=== PATIENT | female | born 1935 | race Caucasian/White ===

== ENCOUNTER → 2016-09-10 | Outpatient (CLI) | payer OTHER ==
--- NOTE | 2016-09-10 15:41 | MAMMOGRAPHY REPORT ---
BILATERAL DIGITAL SCREENING MAMMOGRAM WITH CAD: 09/10/2016 CLINICAL HISTORY: Routine screening. Patient has no complaints. TECHNIQUE: Current study was also evaluated with a Computer Aided Detection (CAD) system. Bilatera l CC and MLO views were obtained. COMPARISON: Comparison is made to exams dated: 08/14/2015 mammogram, 08/12/2014 mammogram, 08/09/2013 enrique mogram, 08/07/2012 mammogram, 07/31/2012 mammogram, and 07/29/2011 mammogram - [facility]. BREAST COMPOSITION: There are scattered areas of fibroglandular density in both breasts. FINDINGS: No suspicious masses, calcifications, or areas of architectural distortion are noted in e ither breast. There has been no significant interval change compared to prior exams. Grouped amorp hous calcifications in the right 12:00 breast are stable dating back to at least the 2007 exam, and are considered benign given long-term stability. Nodular asymmetry in the left subareolar breast on the CC view is similar to prior exams including the 2012 and 2009 exams. IMPRESSION: ACR BI-RADS CATEGORY 2: BENIGN There is no mammographic evidence of malignancy. A 1 year screening mammogram is recommended. The p atient will receive written notification of the results. Approximately 10% of breast cancers are not detected with mammography. A negative mammographic repor t should not delay biopsy if a clinically suggestive mass is present. Nikia Maynard M.D. ah/:09/10/2016 11:06:20 Apprentice Lineman Third Step: Veronika CEBALLOS(Kasie)(Ronaldo)(BLAKE), [facility] letter sent: Normal 1/2 BI-RADS Code: ACR BI-RADS Category 2: Benign
== END | disposition home or self-care (01) ==
LOC: C.MAMM 10:45
PROVIDERS: ATTEND Internal Medicine
DX: Z12.31 Encounter for screening mammogram for malignant neoplasm of breast (principal)

== ENCOUNTER → 2016-09-16 | Outpatient (CLI) | payer OTHER ==
--- NOTE | 2016-09-16 16:23 | DIAGNOSTIC IMAGING REPORT ---
RIGHT WRIST MIN 3 VIEWS ROUTINE CLINICAL HISTORY: Wrist pain, acute, right Right pain COMPARISON: None. DISCUSSION: Generalized degenerative change. Osteopenia. Degenerative change most prominent at the first as well as second carpometacarpal joint. Degenerative change throughout the carpometacarpal junctions. There is no evidence for soft tissue swelling. IMPRESSION: Generalized degenerative change. Osteopenia. Electronically signed by: Tio Mckeon M.D. 09/16/2016 4:22 PM Dictated Date/Time: 09/16/2016 4:22 PM
== END | disposition home or self-care (01) ==
LOC: C.RADBC 15:53
PROVIDERS: ATTEND Physician Assistant
DX: M25.531 Pain in right wrist (principal); M85.88 Other specified disorders of bone density and structure, other site

== ENCOUNTER → 2016-09-17 | Outpatient (CLI) | payer OTHER ==
[2016-09-17 10:45] LABS: BASO % 0.6 %; BASO ABS # 0.04 K/uL (0-0.2); COMPLETE YES; EOS % 3.7 %; HEMATOCRIT 37.7 % (37-47); IG% 0.2 %; LYMPH % 30.9 %; LYMPH ABS # 2.02 K/uL (1.2-3.4); MEAN CELL VOLUME 92.2 fL (80-100); MEAN CORPUSCULAR HEMOGLOBIN 31.1 pg (25-34); MEAN CORPUSCULAR HGB CONC 33.7 g/dl (32-36); NEUT % 55.6 %; PLATELET COUNT 248 K/uL (130-400); RED BLOOD COUNT 4.09 M/uL (4.2-5.4); WHITE BLOOD COUNT 6.54 K/uL (4.8-10.8)
[2016-09-17 11:06] LABS: ALT/SGPT 34 U/L (12-78); BLOOD UREA NITROGEN 17 mg/dl (7-18); BUN/CREATININE RATIO 24.8 (10-20); CARBON DIOXIDE 27 mmol/L (21-32); CHLORIDE 109 mmol/L (98-107); CHOLESTEROL 162 mg/dl (0-200); CREATININE 0.67 mg/dl (0.60-1.20); GLUCOSE 99 mg/dl (70-99); POTASSIUM 4.1 mmol/L (3.5-5.1); SODIUM 142 mmol/L (136-145); TRIGLYCERIDES 106 mg/dl (0-150); URIC ACID 3.7 mg/dl (2.6-7.2); VERY LOW DENSITY LIPOPROT CALC 21 mg/dl
[2016-09-17 11:16] LABS: ALB/GLOB RATIO 1.1 (0.9-2); ALKALINE PHOSPHATASE 84 U/L (45-117); AST/SGOT 30 U/L (15-37); CHOLESTEROL/HDL RATIO 3.3; HDL CHOLESTEROL 49 mg/dl; LDL CHOLESTEROL CALCULATED 92 mg/dl
[2016-09-17 11:56] LABS: CALCIUM 9.3 mg/dl (8.5-10.1)
[2016-09-17 12:10] LABS: LYME DISEASE AB IGG NEG (NEG)
[2016-09-17 12:13] LABS: LYME DISEASE AB IGM NEG (NEG)
--- NOTE | 2016-09-22 14:28 | CODING QUERY MEDICAL NECESSITY ---
CQSUPPORTING DIAGNOSIS NEEDED A supporting diagnosis is required for the test/procedure performed on this patient in order for us to be reimbursed by the patient's insurance. Please provide a supporting diagnosis for the following test/procedure listed below next to the test name along with your signature. *If there is no additional diagnosis for this patient that would support the following test/procedure please document that below next to the test/procedure. Test(s)/Procedure(s) that require a supporting diagnosis: DOS 09/17/16 VITAMIN D VITAMIN B12 Provider Signature: Date: Thank you [facility] Once completed, please kindly fax back to [phone] For questions please call [phone]
== END | disposition home or self-care (01) ==
LOC: C.LABBC 08:19
PROVIDERS: ATTEND Physician Assistant
DX: K21.9 Gastro-esophageal reflux disease without esophagitis (principal); M25.531 Pain in right wrist; E55.9 Vitamin D deficiency, unspecified; E53.8 Deficiency of other specified B group vitamins

== ENCOUNTER → 2016-11-02 | Outpatient (CLI) | payer OTHER | END | disposition home or self-care (01) | LOC: C.MAMM 15:09 | PROVIDERS: ATTEND Internal Medicine | DX: M85.851 Other specified disorders of bone density and structure, right thigh (principal); M85.852 Other specified disorders of bone density and structure, left thigh; M85.88 Other specified disorders of bone density and structure, other site ==

== ENCOUNTER → 2017-09-15 | Outpatient (CLI) | payer OTHER ==
--- NOTE | 2017-09-16 07:48 | MAMMOGRAPHY REPORT ---
BILATERAL DIGITAL SCREENING MAMMOGRAM TOMOSYNTHESIS WITH CAD: 09/15/2017 CLINICAL HISTORY: Routine screening. Patient has no complaints. TECHNIQUE: Breast tomosynthesis in addition to standard 2D mammography was performed. Current study was also evaluated with a Computer Aided Detection (CAD) system. COMPARISON: Comparison is made to exams dated: 09/10/2016 mammogram, 08/14/2015 mammogram, 08/12/2014 mamm ogram, 08/09/2013 mammogram, 08/07/2012 mammogram, and 07/31/2012 mammogram - [facility] . BREAST COMPOSITION: There are scattered areas of fibroglandular density in both breasts. FINDINGS: No suspicious masses, calcifications, or areas of architectural distortion are noted in ei ther breast. There has been no significant interval change compared to prior exams. Amorphous calcif ications in the right 12:00 breast are stable compared to multiple prior exams dating back to at leas t 2008, and considered benign given long-term stability. Architectural distortion is noted within th e right subareolar breast, best seen on the CC tomosynthesis images, consistent with postsurgical bruce nges given that a prior surgical excision was performed in the subareolar right breast in 1998 which yielded benign pathology. IMPRESSION: ACR BI-RADS CATEGORY 2: BENIGN There is no mammographic evidence of malignancy. A 1 year screening mammogram is recommended. The pa tient will receive written notification of the results. Approximately 10% of breast cancers are not detected with mammography. A negative mammographic report should not delay biopsy if a clinically suggestive mass is present. Nikia Maynard M.D. ah/:09/15/2017 16:55:55 Oil Inspector: Veronika CEBALLOS(Kasie)(Ronaldo)(BD), [facility] letter sent: Normal 1/2 BI-RADS Code: ACR BI-RADS Category 2: Benign
== END | disposition home or self-care (01) ==
LOC: C.MAMM 10:02
PROVIDERS: ATTEND Internal Medicine
DX: Z12.31 Encounter for screening mammogram for malignant neoplasm of breast (principal)

== ENCOUNTER 2021-06-18 13:50 | Inpatient (IN) ==
[2021-06-18 14:54] LABS: Basophils # (auto) 0.03 K/uL (0-0.2); Basophils % (auto) 0.4 %; Eosinophils # (auto) 0.14 K/uL (0-0.5); Hematocrit (blood only) 38.2 % (37-47); Hemoglobin 12.6 g/dL (12.0-16.0); Immature Granulocytes # (auto) 0.01 K/uL (0.00-0.02); Immature Granulocytes % (auto) 0.1 %; Lymphocytes # (auto) 2.03 K/uL (1.2-3.4); Lymphocytes % (auto) 29.3 %; Mean Corpuscular Volume 94.1 fL (80-100); Mean Platelet Volume 9.4 fL (7.4-10.4); Monocytes # (auto) 0.59 K/uL (0.11-0.59); Monocytes % (auto) 8.5 %; Neutrophils # (auto) 4.14 K/uL (1.4-6.5); Neutrophils % (auto) 59.7 %; Platelet Count 265 K/uL (130-400); RDW Coefficient of Variation 13.8 % (11.5-14.5); RDW Standard Deviation 47.3 fL (36.4-46.3); Red Blood Count 4.06 M/uL (4.2-5.4); White Blood Count 6.94 K/uL (4.8-10.8)
[2021-06-18 15:07] LABS: Partial Thromboplastin Time 25.7 Seconds (21.0-31.0); Prothrombin Time 10.4 Seconds (9.0-12.0)
--- NOTE | 2021-06-18 15:16 | XRay Report ---
XR chest 1V portable HISTORY: Atypical Chest Pain COMPARISON: None. FINDINGS: No pneumothorax. Trace left pleural effusion. The heart is mildly enlarged. No evidence for pulmonary edema. No focal lung consolidations to suggest pneumonia. No rib fractures. Calcifications within the aortic knob. IMPRESSION: 1. Cardiomegaly and a trace left pleural effusion. 2. No evidence for pulmonary edema. ACT 112: Negative or not required by law. Electronically signed by: Collin Carvajal M.D. 06/18/2021 3:14 PM
[2021-06-18 15:19] LABS: Albumin Globulin Ratio 1.7 (0.9-2); Albumin Level 4.3 gm/dl (3.4-5.0); BUN Creatinine Ratio 18.3 (10-20); Bilirubin,Total 0.6 mg/dl (0.2-1.0); Calcium 9.7 mg/dl (8.5-10.1); Creatinine Clr Calc Pharmacy 42.8 ml/min; Est GFR (African American) 76.7 ml/min; Est GFR (Non-African American) 66.2 ml/min; Globulin 2.5 gm/dl (2.5-4.0); Potassium 4.2 mmol/L (3.5-5.1); Total Protein 6.8 gm/dl (6.0-8.3)
--- NOTE | 2021-06-18 15:26 | Emergency Department Note ---
History of Present Illness General Chief complaint: Hypertension Stated complaint: HYPERTENSION, SOB, ANKLES AND FEET SWOLLEN Time Seen by Provider: 06/18/21 14:59 History of Present Illness Maximum Pain Intensity: 5 85-year-old female presents to the ED with a chief complaint of lower extremity swelling for the past week or 2. She also has noticed some exertional dyspnea and easy exhaustion with activity as well as some mild tremors in her hands. She states that shortness of breath exertion has been present for a few days. The patient states that she noticed that her blood pressure has been also running high today. She reports a history of hypertension and high cholesterol as well as hypothyroidism. She states that she took her medication that she normally takes today and has been taking it regularly. She has not missed any doses. Denies any chest pains. Denies any trauma. No abdominal pains, nausea or vomiting. Home Medications Medication Instructions Recorded Confirmed Type calcium carbonate 600 mg-vitamin 1 tab PO DAILY tab 10/13/18 06/18/21 History D3 5 mcg (200 unit) tablet cyanocobalamin (vitamin B-12) 2,500 mcg PO DAILY tab 10/13/18 06/18/21 History 2,500 mcg tablet omega-3 fatty acids 1,000 mg 1,000 mg PO DAILY 10/13/18 06/18/21 History capsule (Fish Oil Concentrate) cholecalciferol (vitamin D3) 50 2,000 units PO DAILY 05/22/19 06/18/21 History mcg (2,000 unit) tablet glucosamine sulfate 500 mg tablet 500 mg PO DAILY tab 05/22/19 06/18/21 History (Glucosamine) ibuprofen 200 mg tablet 200 mg PO Q6H tab 04/08/21 06/18/21 History levothyroxine 50 mcg tablet 50 mcg PO DAILY #90 tab 06/08/21 06/18/21 Rx omeprazole 20 mg capsule,delayed 20 mg PO DAILY #90 cap 06/08/21 06/18/21 Rx release pravastatin 40 mg tablet 40 mg PO DAILY #90 tab 06/08/21 06/18/21 Rx ramipril 2.5 mg capsule 2.5 mg PO DAILY #90 cap 06/08/21 06/18/21 Rx Allergies Allergy/AdvReac Type Severity Reaction Status Date / Time adhesive Allergy Unknown Unknown Verified 06/18/21 15:09 Past Med/Surg History Medical History (Updated 06/18/21 @ 15:37 by Arik Cassidy DO) Abnormal mammogram Arthritis Basal cell carcinoma of face Gastroesophageal reflux disease Hyperglycemia Hyperlipidemia Hypertension Hypothyroidism Osteoporosis, senile Rosacea Vitamin B12 deficiency Vitamin D deficiency Surgical History History of cataract surgery BILATERAL History of colonoscopy History of total abdominal hysterectomy and bilateral salpingo-oophorectomy Family History Brother Coronary heart disease Dyslipidemia Hypertension Lung cancer Mother Diabetes Father Stroke syndrome Social History Smoking Status: Never smoker Second Hand Exposure: No; Hx Alcohol Use: Yes Alcohol type: wine Alcohol Intake Frequency: Monthly or Less Hx Substance Use: No Preferred Language: Malian Communication Ability: Effective Visual Impairment: Limited Hearing Ability: Use of Hearing Aid Nailhead Setter Required: No marital status: Current Living Situation: Alone current occupational status: retired Feels Safe at Home: Yes Childhood Exposure to Second-Hand Smoke: Yes caffeine: Yes Dental Care, Regularly: Yes Physical Activity Frequency: 3-4 Times per Week Physical Activity Frequency Comment: "easy moves", weights, steps, chair exercise Seatbelt Use: always Sunscreen Use: Yes Do you think of yourself as: straight/heterosexual Review of Systems A total of 10 systems reviewed and were otherwise negative Physical Exam Vital Signs Vital Signs - 24 hr 06/18/21 14:07 06/18/21 14:52 06/18/21 14:56 Temperature 36.5 C 37 C Temperature Source Temporal Artery Scan Oral Pulse Rate 40 L 51 L Pulse Rate [Right Finger] 54 L Pulse Rhythm Regular Pulse Rhythm [Right Finger] Regular Pulse Strength [Right Finger] Normal Respiratory Rate 18 20 20 Respiratory Effort / Characteristics Non-Labored Non-Labored Spontaneous Respiratory Depth Normal Normal Respiratory Pattern Regular Regular Blood Pressure 216/75 H Blood Pressure [Left Arm] 219/71 H Blood Pressure Mean 122 Blood Pressure Mean [Left Arm] 120 Blood Pressure Position [Left Arm] Lying Pulse Oximetry 97 96 96 Oxygen Delivery Method Room Air Room Air Room Air Sepsis Recent Fever Within 48 Hours No Sepsis New/Unexplained Change in Mental Status No Sepsis Action Taken by Nursing No Action Required CONSTITUTIONAL/VITAL SIGNS: Reviewed / noted above. GENERAL: Non-toxic in appearance. INTEGUMENTARY: Warm, dry, and Virgil. HEAD: Normocephalic. EYES: without scleral icterus or trauma. ENT/OROPHARYNX: clear and moist. LYMPHADENOPATHY/NECK: Is supple without lymphadenopathy or meningismus. RESPIRATORY: Clear to auscultation bilaterally. No increased work of breathing. CARDIOVASCULAR: Bradycardic rate and regular rhythm. GI/ABDOMEN: Soft and nontender. No organomegaly or pulsatile mass. EXTREMITIES: Warm and well perfused. Mild bilateral pedal edema. BACK: No CVA tenderness. NEUROLOGICAL: Intact without focal deficits. PSYCHIATRIC: normal affect. MUSCULOSKELETAL: Normally developed with good muscle tone. TRIAGE NURSING DOCUMENTATION REVIEWED. Medical Decision Making Differential Diagnosis The differential that was considered includes acute myocardial infarction, acute coronary syndrome, myocarditis, pericarditis, pericardial effusions /tamponade, esophageal perforation, thoracic aortic dissection, pulmonary embolism, pneumonia, Medical Records Attestation: I reviewed the patient's medical records. Home Medications Current Medication List: was personally reviewed by me Laboratory Data Attestation: I reviewed the patient's lab results. Result diagrams: 06/18/21 14:30 06/18/21 14:30 Lab Results 06/18/21 06/18/21 06/18/21 Range/Units 14:30 14:30 14:30 WBC 6.94 (4.8-10.8) K/uL RBC 4.06 L (4.2-5.4) M/uL Hgb 12.6 (12.0-16.0) g/dL Hct 38.2 (37-47) % MCV 94.1 (80-100) fL MCH 31.0 (25-34) pg MCHC 33.0 (32-36) g/dL RDW Std Deviation 47.3 H (36.4-46.3) fL RDW Coeff of Jody 13.8 (11.5-14.5) % Plt Count 265 (130-400) K/uL MPV 9.4 (7.4-10.4) fL Immature Gran % (Auto) 0.1 % Neut % (Auto) 59.7 % Lymph % (Auto) 29.3 % [place] % (Auto) 8.5 % Eos % (Auto) 2.0 % Baso % (Auto) 0.4 % Neut # (Auto) 4.14 (1.4-6.5) K/uL Lymph # (Auto) 2.03 (1.2-3.4) K/uL [place] # (Auto) 0.59 (0.11-0.59) K/uL Eos # (Auto) 0.14 (0-0.5) K/uL Baso # (Auto) 0.03 (0-0.2) K/uL Immature Gran # (Auto) 0.01 (0.00-0.02) K/uL PT 10.4 (9.0-12.0) Seconds INR 1.0 (0.9-1.1) APTT 25.7 (21.0-31.0) Seconds PTT Ratio 1.0 Sodium 143 (136-145) mmol/L Potassium 4.2 (3.5-5.1) mmol/L Chloride 110 H (98-107) mmol/L Carbon Dioxide 27 (21-32) mmol/L Anion Gap 6 (3-11) BUN 15 (6-23) mg/dl Creatinine 0.82 (0.6-1.2) mg/dl Est Cr Clr Drug Dosing 42.8 ml/min Est GFR ( Amer) 76.7 ml/min Est GFR (Non-Af Amer) 66.2 ml/min BUN/Creatinine Ratio 18.3 (10-20) Glucose 96 (70-99(Fasting)) mg/dl Calcium 9.7 (8.5-10.1) mg/dl Total Bilirubin 0.6 (0.2-1.0) mg/dl AST 36 (13-39) U/L ALT 38 (7-52) U/L Alkaline Phosphatase 78 (34-104) U/L Troponin I 0.05 H* (0-0.04) ng/ml Total Protein 6.8 (6.0-8.3) gm/dl Albumin 4.3 (3.4-5.0) gm/dl Globulin 2.5 (2.5-4.0) gm/dl Albumin/Globulin Ratio 1.7 (0.9-2) Imaging Data Radiologist's Impression: Chest X-Ray 06/18/21 14:44 XR chest 1V portable HISTORY: Atypical Chest Pain COMPARISON: None. FINDINGS: No pneumothorax. Trace left pleural effusion. The heart is mildly enlarged. No evidence for pulmonary edema. No focal lung consolidations to suggest pneumonia. No rib fractures. Calcifications within the aortic knob. IMPRESSION: 1. Cardiomegaly and a trace left pleural effusion. 2. No evidence for pulmonary edema. ACT 112: Negative or not required by law. Electronically signed by: Collin Carvajal M.D. 06/18/2021 3:14 PM ECG Data Attestation: I personally reviewed and interpreted this ECG as follows: Additional Comments: Twelve-lead EKG: Per my interpretation shows a sinus rhythm with a second-degree Mobitz type II heart block with a rate of 43. Every other atrial beat resulted in a ventricular beat on the twelve-lead EKG. T wave inversions noted in the anterior leads. No ST elevation. No PVCs. Cardiac monitoring: An order was placed for continuous cardiac monitoring. The monitor shows a sinus rhythm with a second-degree heart block transmitting every third beat resulting in a ventricular rate of around 30. MDM Narrative Patient presents with some exertional dyspnea and swelling in her legs that has been recent in onset within the past week or 2. Her exertional dyspnea and exertional fatigue has been present for a few days. Her vital signs reveal hypertension. She has not missed any of her ramipril. The patient's heart rate is slow. This is a result of a sinus rhythm with a second-degree type II heart block. Twelve-lead EKG shows a sinus rhythm with a second-degree heart block type II. There are T wave inversions anteriorly. CBC was normal. A chest x- ray reveals and some cephalization of the vasculature but no acute pulmonary claribel ma or pneumonia. The patient CBC and chemistry panel was unremarkable. The troponin is elevated. I did speak with Dr. Meza about the patient. He will see the patient in consultation. I will consult the hospitalist for further inpatient evaluation and care. At this time the patient appears to be clinically stable. Pacer pads have been applied. Impression & Plan Mobitz type 2 second degree heart block, Elevated troponin Discharge Plan Visit Data Chief Complaint: Hypertension Stated Complaint: HYPERTENSION, SOB, ANKLES AND FEET SWOLLEN ED Provider: Arik Cassidy Discharge Problem: Mobitz type 2 second degree heart block, Elevated troponin Patient Disposition: Being Evaluated by Hospitalist Forms Stand Alone Forms: My [facility] [employer] Prescriptions Prescriptions: No Action ramipril 2.5 mg capsule 2.5 mg PO DAILY Qty: 90 RF: 3 levothyroxine 50 mcg tablet 50 mcg PO DAILY Qty: 90 RF: 3 omeprazole 20 mg capsule,delayed release(DR/EC) 20 mg PO DAILY Qty: 90 RF: 3 pravastatin 40 mg tablet 40 mg PO DAILY Qty: 90 RF: 3 cyanocobalamin (vitamin B-12) 2,500 mcg tablet 2,500 mcg PO DAILY RF: 0 calcium carbonate-vitamin D3 600 mg(1,500mg) -200 unit tablet 1 tab PO DAILY RF: 0 omega-3 fatty acids [Fish Oil Concentrate] 1,000 mg capsule 1,000 mg PO DAILY RF: 0 glucosamine sulfate [Glucosamine] 500 mg tablet 500 mg PO DAILY RF: 0 ibuprofen 200 mg tablet 200 mg PO Q6H RF: 0 cholecalciferol (vitamin D3) 2,000 unit tablet 2,000 units PO DAILY RF: 0 Referrals Referrals: Ryan Limon MD [Primary Care Provider] -
[2021-06-18 15:31] LABS: Troponin I 0.05 ng/ml (0-0.04)
[2021-06-18 16:06] LABS: Thyroid Stimulating Hormone 6.677 uIu/ml (0.300-4.500)
--- NOTE | 2021-06-18 16:16 | History & Physical Report ---
Date of Service June 18, 2021 Assessment & Plan (1) Mobitz type 2 second degree heart block: Plan: Acute onset- Type II Mobitz vs Type III - ECG without dynamic ST changes - Troponin I 0.05- trend - Evidence of peripheral volume overload - TSH 6.6 with normal T4 on 50mcg of Synthroid daily - Electrolytes- Mag 1.7- replete closer to 2 decrease QT with bradycardia - Lympe pending - BNP 595 - UA pending - No gap, normal HCO3- making BRASH less likely - Normal renal function - Cardiology consulted by EMD- continue consult- appreciate assistance - NPO after midnight Overall tolerate her elevated BP as this is likely compensatory- if hemodynamics become compromised or evidence of hypoperfusion - pressor support would chose epinephrine and initiate TCP pacing with progression to temp/permanent pacer therapy. (2) Elevated troponin: Plan: As symptoms have been ongoing for the past week would expect this to be more elevated if ischemic - Patient does carry family history of heart disease with brothers having MIs - As above- trend (3) Hypertension: Plan: As above- diurese overnight as perfusion allows (4) Edema: Plan: dietary indiscretion liley leading to fluid retention - likeley compounded by her bradycardia at this point (5) Hypothyroidism: Plan: on 50MCG synthroid with TSH normally 2 range - Free T4 is normal - Likely not causing her bradycardia (6) Vitamin D deficiency: Plan: Hold Vitamin D for now (7) Vitamin B12 deficiency: Plan: Hold B12 for now (8) Sensory polyneuropathy: Plan: Follows with neurology- MRI as per HPI and chart review (9) Hyperlipidemia: Plan: Continue Pravastatin History of Present Illness Chief Complaint: dyspnea on exertion, fatigue Primary Care Provider: Ryan Limon MD 85 YOF with past medical history of: HTN, Hypothyroidism, polyneuropathy, lumbar spondylosis, OA. Patient comes in today for complaints of dyspnea and fatigue and leg swelling. This has been ongoing for the past 2 weeks. Started with swelling of her ankles bilaterally and slowly progressing up to her knees, she also has been getting increase in fatigue and dyspnea when performing her physical therapy to the point she needed to sit down and rest. She denies any chest pain or dizziness, she did however have a feeling of off balance yesterday while getting her mail. In the EMD the patient was noted to be hypertensive and bradycardic. She was noted to be in 2nd degree type II AV block. She had routine labs done to include troponin, ECG, and CXR. The patient denies any new medications, but does endorse dietary indiscretion over the last month of allot of ham and dairy. She does not have any pets, but her family that visits every other week has 2 dogs that are inside pets. She denies any ticks or insect bites. She does follow with neurology for her neuropathy and had MRI of the brain, lumbar, thoracic completed May and Jun 29 without acute infarct/masses, or chord involvement. Noted for DJD and anterolisthesis of L4- L5. Patient is bradycardic to the 40s and 50s with evidence of peripheral volume overload and pleural effusions on her CXR. She is hypertensive at this time, which is likely compensatory from her HR. She has no evidence of organ dysfunction or hypoxia at this time. Electrolytes are normal without evidence of acidosis making BRASH syndrome less likely. Lyme is pending on her. TSH is 6.67 with normal T4 of 1.30, BNP is elevated, and she is without neurological symptoms. Troponin I 0.[address] segment changes, no evidence of infectious etiology. Will admit patient to PCU with diuresing to decrease her volume status, will avoid aggressive BP lowering at this time as this is likely compensatory for her low HR. Patient COVID test is: NEGATIVE at this time Allergies Allergy/AdvReac Type Severity Reaction Status Date / Time adhesive Allergy Unknown Unknown Verified 06/18/21 15:09 Home Medications Medication Instructions Recorded Confirmed Type calcium carbonate 600 mg-vitamin 1 tab PO DAILY tab 10/13/18 06/18/21 History D3 5 mcg (200 unit) tablet cyanocobalamin (vitamin B-12) 2,500 mcg PO DAILY tab 10/13/18 06/18/21 History 2,500 mcg tablet omega-3 fatty acids 1,000 mg 1,000 mg PO DAILY 10/13/18 06/18/21 History capsule (Fish Oil Concentrate) cholecalciferol (vitamin D3) 50 2,000 units PO DAILY 05/22/19 06/18/21 History mcg (2,000 unit) tablet glucosamine sulfate 500 mg tablet 500 mg PO DAILY tab 05/22/19 06/18/21 History (Glucosamine) ibuprofen 200 mg tablet 200 mg PO Q6H tab 04/08/21 06/18/21 History levothyroxine 50 mcg tablet 50 mcg PO DAILY #90 tab 06/08/21 06/18/21 Rx omeprazole 20 mg capsule,delayed 20 mg PO DAILY #90 cap 06/08/21 06/18/21 Rx release pravastatin 40 mg tablet 40 mg PO DAILY #90 tab 06/08/21 06/18/21 Rx ramipril 2.5 mg capsule 2.5 mg PO DAILY #90 cap 06/08/21 06/18/21 Rx Past Med/Surg History Medical History (Updated 06/18/21 @ 17:31 by Benji Carpenter MD) Abnormal mammogram Arthritis Basal cell carcinoma of face Gastroesophageal reflux disease Hyperglycemia Hyperlipidemia Hypertension Hypothyroidism Osteoporosis, senile Rosacea Vitamin B12 deficiency Vitamin D deficiency Surgical History History of cataract surgery BILATERAL History of colonoscopy History of total abdominal hysterectomy and bilateral salpingo-oophorectomy Family History Brother Coronary heart disease Dyslipidemia Hypertension Lung cancer Mother Diabetes Father Stroke syndrome Social History Smoking Status: Never smoker Second Hand Exposure: No; Do You Dip or Chew Tobacco: No; Tobacco Cessation Education Requested by Patient: No Hx Alcohol Use: Yes Alcohol type: wine Alcohol Intake Frequency: Monthly or Less Hx Substance Use: No Preferred Language: Setswana Communication Ability: Effective Visual Impairment: Limited Hearing Ability: Use of Hearing Aid Camp Tender Required: No Beliefs That Will Affect Care: None marital status: Current Living Situation: Alone current occupational status: retired Other Information That Helps Us Care for You: No Feels Safe at Home: Yes Safety Concerns: Feels Safe At This Time Childhood Exposure to Second-Hand Smoke: Yes caffeine: Yes Dental Care, Regularly: Yes Physical Activity Frequency: 3-4 Times per Week Physical Activity Frequency Comment: "easy moves", weights, steps, chair exercise Seatbelt Use: always Sunscreen Use: Yes Do you think of yourself as: straight/heterosexual Assistive Devices: Denture - Upper and Hearing Aid - Bilateral Assistive Devices Comment: permanent dentures and small removal upper dentures Review of Systems Review of Systems: REVIEW OF SYSTEMS: Constitutional: No fever, sweats or chills Eyes: No diplopia, no worsening or blurred vision ENT: normal hearing, no trouble swallowing Respiratory: (+) dyspnea on exertion, No cough, sputum, dyspnea at rest or on exertion Cardiovascular: (+) leg swelling bilateral, No chest pain, tightness or palpita tions Abdomen: No pain, nausea, vomiting, diarrhea or constipation Musculoskeletal: (+) lower back pain, neuropathy in fingers and foot Neurologic: No weakness, or balance problems Psychiatric: No anxiety or depression Skin: No rash or itch Physical Exam Physical Exam: PHYSICAL EXAM: General: awake, alert, no apparent distress Head: Normocephalic, atraumatic ENT: PERRLA, EOMI, no pharyngeal exudate, mucous membranes moist Neuro: AAO x 3, speech clear and appropriate, strength intact bilaterally 5/5, sensation intact and equal all extremities and dermatomes, no pronator drift Chest: equal rise and fall of the chest, no accessory muscle use, no heaves or thrills, scattered crackles- decreased in the bases Cardiac: Regular rate and rhythm, telemetry reviewed- 2nd degree type II, skin warm dry, cap refill <3 seconds, peripheral pulses +2, 3+ soft pitting edema from feet to just below the knee bilaterally GI: NABS x 4 quadrants, soft, nontender to palpation, no rebound, guarding or tenderness : Spontaneously voiding, no pain, no CVA tenderness, Extremities: Normal inspection, no peripheral edema or erythema, calfs nontender to palpation Psych: Normal mood and affect Skin: no rash or erythema Results & Data Results & Data ([facility]) Vital Signs (Past 12 Hours) Vital Signs Temp Pulse Pulse Resp BP BP Pulse Ox 06/18/21 16:00 112 H 20 212/76 H 96 06/18/21 14:56 51 L 20 96 06/18/21 14:52 37 C 54 L 20 219/71 H 96 06/18/21 14:07 36.5 C 40 L 18 216/75 H 97 Laboratory Results Abnormal lab results 06/18/21 06/18/21 06/18/21 Range/Units 14:30 14:30 15:35 RBC 4.06 L (4.2-5.4) M/uL RDW Std Deviation 47.3 H (36.4-46.3) fL Chloride 110 H (98-107) mmol/L Troponin I 0.05 H* (0-0.04) ng/ml B-Natriuretic Peptide (0-100) pg/ml TSH 6.677 H (0.300-4.500) uIu/ml 06/18/21 Range/Units 16:05 RBC (4.2-5.4) M/uL RDW Std Deviation (36.4-46.3) fL Chloride (98-107) mmol/L Troponin I (0-0.04) ng/ml B-Natriuretic Peptide 595 H (0-100) pg/ml TSH (0.300-4.500) uIu/ml Diagnostic Findings Chest X-Ray 06/18/21 14:44 XR chest 1V portable HISTORY: Atypical Chest Pain COMPARISON: None. FINDINGS: No pneumothorax. Trace left pleural effusion. The heart is mildly enlarged. No evidence for pulmonary edema. No focal lung consolidations to suggest pneumonia. No rib fractures. Calcifications within the aortic knob. IMPRESSION: 1. Cardiomegaly and a trace left pleural effusion. 2. No evidence for pulmonary edema. ACT 112: Negative or not required by law. Electronically signed by: Collin Carvajal M.D. 06/18/2021 3:14 PM Medications Administered Home Medications calcium carbonate 600 mg-vitamin D3 5 mcg (200 unit) tablet 1 tab PO DAILY tab 10/13/18 [History Confirmed 06/18/21] cyanocobalamin (vitamin B-12) 2,500 mcg tablet 2,500 mcg PO DAILY tab 10/13/18 [History Confirmed 06/18/21] omega-3 fatty acids 1,000 mg capsule (Fish Oil Concentrate) 1,000 mg PO DAILY 10/13/18 [History Confirmed 06/18/21] cholecalciferol (vitamin D3) 50 mcg (2,000 unit) tablet 2,000 units PO DAILY [History Confirmed 06/18/21] glucosamine sulfate 500 mg tablet (Glucosamine) 500 mg PO DAILY tab 05/22/19 [History Confirmed 06/18/21] ibuprofen 200 mg tablet 200 mg PO Q6H tab 04/08/21 [History Confirmed 06/18/21] levothyroxine 50 mcg tablet 50 mcg PO DAILY #90 tab 01/31/22 [Rx Confirmed 06/18/21] omeprazole 20 mg capsule,delayed release 20 mg PO DAILY #90 cap 06/08/21 [Rx Confirmed 06/18/21] pravastatin 40 mg tablet 40 mg PO DAILY #90 tab 06/08/21 [Rx Confirmed 06/18/21] ramipril 2.5 mg capsule 2.5 mg PO DAILY #90 cap 06/08/21 [Rx Confirmed 06/18/21] Active Medications Magnesium Sulfate/Dextrose (Magnesium Sulfate / D5w) 1 gm in 100 mls @ 50 mls/hr IV Q2H STA Stop: 06/18/21 18:22 ECG Additional Comments: Marked sinus bradycardia with Premature ventricular complexes or Fusion complexes Possible Left atrial enlargement Incomplete right bundle branch block ST & T wave abnormality, consider anterior ischemia Abnormal ECG When compared with ECG of 11-OCT-1996 09:39, Fusion complexes are now Present Premature ventricular complexes are now Present Vent. rate has decreased BY 34 BPM Incomplete right bundle branch block is now Present Code Status & VTE Plan Code Status CODE: FULL VTE: SCDs, Lovenox 40mg subq daily Supervising Physician Co-Signing Physician Notes Attending Attestation & Admission Note: Pt seen/examined, chart reviewed, care plan d/w AYAN Saez. I agree w/ the johnson components of his documentation. Pleasant 85yo female with h/o HTN, hyperlipidemia, and hypothyroidism presents with 1-2 weeks of simply feeling unwell. She reports fatigue, weakness, dyspnea, and worsening LE edema. Upon ER presentation today she was noted to be bradycardic and EKG revealed type 2 Mobitz, 2nd degree AV block. Cardiology was consulted, and permanent pacemaker placement is planned for tomorrow. PMH/PSH/allergies/meds/sochx/famhx - reviewed vitals - BPs elevated, afebrile, O2 sats wnl in RA gen - NAD, pleasant neck - JVD present heart - bradycardic, s1 s2, no murmur lungs - fine bibasilar rales, no wheeze, no increased work of breathing abd - soft NT BS+ ext - 2-3+ edema b/l legs labs reviewed EKG - 2nd degree AV block, mobitz type 2 vs 3rd degree AV block cxr reviewed A/P: High-degree AV Block Dyspnea - possibly 2nd to acute diastolic CHF in setting of the heart block HTN - uncontrolled fatigue - 2nd to AV Block agree with gentle diuresis BP control cards consult appreciated; NPO after MN tonight for pacer placement tomorrow by Dr Carpenter check echo for LV function Edmond Bennett MD PG Care Time/CCT Total # of Minutes Spent Total Time Spent with Patient: Total time spent is greater than 50% in coordination of care (as documented) at patient's floor/unit and/or counseling patient: Coding Level of Care Code 90902 Initial Inpt Care Lvl 3 Diagnoses Mobitz type 2 second degree heart block I44.1 Elevated troponin R77.8 Edema R60.9 Sensory polyneuropathy G60.8 Vitamin D deficiency E55.9 Vitamin B12 deficiency E53.8 Hypothyroidism E03.9 Hypothyroidism type: acquired Hypertension I10 Hypertension type: essential hypertension Hyperlipidemia E78.49; E78.4 Hyperlipidemia type: other hyperlipidemia (1) Hyperlipidemia Hyperlipidemia type: other hyperlipidemia Qualified Code(s): E78.49 - Other hyperlipidemia; E78.4 - Other hyperlipidemia (2) Hypothyroidism Hypothyroidism type: acquired Qualified Code(s): E03.9 - Hypothyroidism, unspecified (3) Hypertension Hypertension type: essential hypertension Qualified Code(s): I10 - Essential (primary) hypertension
[2021-06-18] MEDS ORDERED: MAGNESIUM SULFATE / D5W 1 GM/100 ML BAG IV STA (16:23)
[2021-06-18 16:41] LABS: T4 Free Thyroxine 1.3 ng/dl (0.61-1.60)
[2021-06-18] MEDS ORDERED: FUROSEMIDE INJ 20 MG/2 ML VIAL IV ONE (16:55)
[2021-06-18 17:00] LABS: Lyme Ab IgG w/WB Rflx Negative (Negative); Lyme Ab IgM w/WB Rflx Negative (Negative)
--- NOTE | 2021-06-18 17:33 | Cardiology Consultation ---
Date of Consultation June 18, 2021 Assessment & Plan (1) Complete heart block: 1. Complete heart block: She may have some element of AV conduction at times, this likely represents high-degree AV block. Does have a narrow complex escape rhythm. She undoubtedly is symptomatic the associated bradycardia. Very possible that she has had significant conduction disease for several days based on her description of symptoms. There does not appear to be a clear etiology. Her Lyme titers were negative. She is not a medication that should contribute to AV block. While we do not have an assessment of her overall LV function, she seemed to be doing well leading up to the past few weeks. she seems to have an element of pulmonary vascular congestion by report and did undergo diuretic administration. This is likely related to her complete heart block and associated bradycardia. No evidence of recent myocardial infarction based on her essentially normal troponin. She is maintaining a good blood pressure, even hypertensive. She has a narrow complex escape rhythm. I do not believe there is an indication for temporary transvenous pacing. However, I do believe she will require a permanent pacemaker. Did describe the procedure and attendant risks to her today. Tentatively plan on proceeding tomorrow. We will get an echocardiogram in the morning. we will trend biomarkers History of Present Illness Reason for Consultation: Bradycardia Requesting Physician: Sofía History of Present Illness the patient is an 85-year-old woman without a known history of cardiac disease who came to the emergency room today because exercise intolerance breathing difficulty and swollen ankles. The patient states she has not felt well for approximately a week and. She has had some more difficulty performing activities. She has noted higher blood pressures at home well. She did not specifically endorse dizziness or lightheadedness she has not had syncope. She states that today she had difficulty coming in from the parking due to dyspnea. Did not report orthopnea. Does have some home monitoring device at home but could not get her blood pressure machine work today. However, she states that several days ago she noticed a low pulse reading when taking her blood pressure. She presented to the emergency room with these complaints and was discovered to have bradycardia. EKG revealed high-degree AV block. Allergies Allergy/AdvReac Type Severity Reaction Status Date / Time adhesive Allergy Unknown Unknown Verified 06/18/21 15:09 Home Medications Medication Instructions Recorded Confirmed Type calcium carbonate 600 mg-vitamin 1 tab PO DAILY tab 10/13/18 06/18/21 History D3 5 mcg (200 unit) tablet cyanocobalamin (vitamin B-12) 2,500 mcg PO DAILY tab 10/13/18 06/18/21 History 2,500 mcg tablet omega-3 fatty acids 1,000 mg 1,000 mg PO DAILY 10/13/18 06/18/21 History capsule (Fish Oil Concentrate) cholecalciferol (vitamin D3) 50 2,000 units PO DAILY 05/22/19 06/18/21 History mcg (2,000 unit) tablet glucosamine sulfate 500 mg tablet 500 mg PO DAILY tab 05/22/19 06/18/21 History (Glucosamine) ibuprofen 200 mg tablet 200 mg PO Q6H tab 04/08/21 06/18/21 History levothyroxine 50 mcg tablet 50 mcg PO DAILY #90 tab 06/08/21 06/18/21 Rx omeprazole 20 mg capsule,delayed 20 mg PO DAILY #90 cap 06/08/21 06/18/21 Rx release pravastatin 40 mg tablet 40 mg PO DAILY #90 tab 06/08/21 06/18/21 Rx ramipril 2.5 mg capsule 2.5 mg PO DAILY #90 cap 06/08/21 06/18/21 Rx Patient History Medical History (Updated 06/18/21 @ 17:31 by Benji Carpenter MD) Abnormal mammogram Arthritis Basal cell carcinoma of face Gastroesophageal reflux disease Hyperglycemia Hyperlipidemia Hypertension Hypothyroidism Osteoporosis, senile Rosacea Vitamin B12 deficiency Vitamin D deficiency Surgical History History of cataract surgery BILATERAL History of colonoscopy History of total abdominal hysterectomy and bilateral salpingo-oophorectomy Family History Brother Coronary heart disease Dyslipidemia Hypertension Lung cancer Mother Diabetes Father Stroke syndrome Social History Smoking Status: Never smoker Second Hand Exposure: No; Hx Alcohol Use: Yes Alcohol type: wine Alcohol Intake Frequency: Monthly or Less Hx Substance Use: No Preferred Language: Scottish Communication Ability: Effective Visual Impairment: Limited Hearing Ability: Use of Hearing Aid Car Hiker Required: No marital status: Current Living Situation: Alone current occupational status: retired Feels Safe at Home: Yes Childhood Exposure to Second-Hand Smoke: Yes caffeine: Yes Dental Care, Regularly: Yes Physical Activity Frequency: 3-4 Times per Week Physical Activity Frequency Comment: "easy moves", weights, steps, chair exercise Seatbelt Use: always Sunscreen Use: Yes Do you think of yourself as: straight/heterosexual Review of Systems Review of Systems: Per HPI. She has not had recent fevers or chills. No gastrointestinal disturbance. Some slight headache this afternoon. Physical Exam Physical Exam: She is alert and oriented x3. Mood affect appear normal. She answered all questions appropriately. HEENT: Sclerae are anicteric. Pupils are equal and reactive to light and accommodation. Extraocular movements were intact. Neuro: Cranial nerves intact (Wearing a mask) Lungs: Lungs are clear to auscultation bilaterally. There are no rales wheezes or rhonchi. She has normal respiratory effort without use of accessory muscles. There is normal pulmonary excursion. Cardiac: The rhythm was regular. bradycardic. S1 and S2 were normal. There are no murmurs on examination. The PMI was not markedly displaced on palpation. Abdomen: The abdomen was soft and nontender. Extremities: Patient has bilateral radial pulses that are equal in intensity. There is no evidence cyanosis or clubbing. moderate lower extremity edema Skin: There are no rashes noted on examination today. Results & Data ([facility]) Vital Signs (Past 12 Hours) Vital Signs Temp Pulse Pulse Resp BP BP Pulse Ox 06/18/21 16:00 112 H 20 212/76 H 96 06/18/21 14:56 51 L 20 96 06/18/21 14:52 37 C 54 L 20 219/71 H 96 06/18/21 14:07 36.5 C 40 L 18 216/75 H 97 Laboratory Results Abnormal Lab Results 06/18/21 06/18/21 06/18/21 14:30 14:30 14:30 WBC 6.94 RBC 4.06 L Hgb 12.6 Hct 38.2 MCV 94.1 MCH 31.0 MCHC 33.0 RDW Std Deviation 47.3 H RDW Coeff of Jody 13.8 Plt Count 265 MPV 9.4 Immature Gran % (Auto) 0.1 Neut % (Auto) 59.7 Lymph % (Auto) 29.3 [place] % (Auto) 8.5 Eos % (Auto) 2.0 Baso % (Auto) 0.4 Neut # (Auto) 4.14 Lymph # (Auto) 2.03 [place] # (Auto) 0.59 Eos # (Auto) 0.14 Baso # (Auto) 0.03 Immature Gran # (Auto) 0.01 PT 10.4 INR 1.0 APTT 25.7 PTT Ratio 1.0 Sodium 143 Potassium 4.2 Chloride 110 H Carbon Dioxide 27 Anion Gap 6 BUN 15 Creatinine 0.82 Est Cr Clr Drug Dosing 42.8 Est GFR ( Amer) 76.7 Est GFR (Non-Af Amer) 66.2 BUN/Creatinine Ratio 18.3 Glucose 96 Calcium 9.7 Magnesium Total Bilirubin 0.6 AST 36 ALT 38 Alkaline Phosphatase 78 Troponin I 0.05 H* B-Natriuretic Peptide Total Protein 6.8 Albumin 4.3 Globulin 2.5 Albumin/Globulin Ratio 1.7 TSH Free T4 Lyme Disease IgG Ab Lyme Disease IgM Ab SARS-CoV-2, RNA, NAAT 06/18/21 06/18/21 06/18/21 14:30 15:35 15:43 WBC RBC Hgb Hct MCV MCH MCHC RDW Std Deviation RDW Coeff of Jody Plt Count MPV Immature Gran % (Auto) Neut % (Auto) Lymph % (Auto) [place] % (Auto) Eos % (Auto) Baso % (Auto) Neut # (Auto) Lymph # (Auto) [place] # (Auto) Eos # (Auto) Baso # (Auto) Immature Gran # (Auto) PT INR APTT PTT Ratio Sodium Potassium Chloride Carbon Dioxide Anion Gap BUN Creatinine Est Cr Clr Drug Dosing Est GFR ( Amer) Est GFR (Non-Af Amer) BUN/Creatinine Ratio Glucose Calcium Magnesium 1.7 Total Bilirubin AST ALT Alkaline Phosphatase Troponin I B-Natriuretic Peptide Total Protein Albumin Globulin Albumin/Globulin Ratio TSH 6.677 H Free T4 1.30 Lyme Disease IgG Ab Lyme Disease IgM Ab SARS-CoV-2, RNA, NAAT NEGATIVE 06/18/21 06/18/21 16:05 16:05 WBC RBC Hgb Hct MCV MCH MCHC RDW Std Deviation RDW Coeff of Jody Plt Count MPV Immature Gran % (Auto) Neut % (Auto) Lymph % (Auto) [place] % (Auto) Eos % (Auto) Baso % (Auto) Neut # (Auto) Lymph # (Auto) [place] # (Auto) Eos # (Auto) Baso # (Auto) Immature Gran # (Auto) PT INR APTT PTT Ratio Sodium Potassium Chloride Carbon Dioxide Anion Gap BUN Creatinine Est Cr Clr Drug Dosing Est GFR ( Amer) Est GFR (Non-Af Amer) BUN/Creatinine Ratio Glucose Calcium Magnesium Total Bilirubin AST ALT Alkaline Phosphatase Troponin I B-Natriuretic Peptide 595 H Total Protein Albumin Globulin Albumin/Globulin Ratio TSH Free T4 Lyme Disease IgG Ab Negative Lyme Disease IgM Ab Negative SARS-CoV-2, RNA, NAAT Diagnostic Findings chest x-ray taken at the time admission not reveal any acute cardiopulmonary process. ECG Additional Comments: EKG obtained the time admission revealed sinus rhythm with high-degree AV block. Narrow complex QRS Coding Level of Care Code 83060 Initial Inpt Care Lvl 3 Diagnoses Complete heart block I44.2
[2021-06-18] MEDS ORDERED: POLYETHYLENE (MIRALAX) 17 GM PACK PO PRN (18:15)
[2021-06-18] MEDS ORDERED: ACETAMINOPHEN 325 MG TAB PO PRN (18:15)
[2021-06-18] MEDS ORDERED: ENOXAPARIN INJ 40 MG/0.4 ML SYR SQ SCH (19:00)
[2021-06-19] MEDS: LEVOTHYROXINE SODIUM 50 MCG TABLET PO SCH (05:45)
[2021-06-19 06:13] LABS: Basophils # (auto) 0.02 K/uL (0-0.2); Basophils % (auto) 0.3 %; Eosinophils # (auto) 0.12 K/uL (0-0.5); Eosinophils % (auto) 1.6 %; Hematocrit (blood only) 33.8 % (37-47); Hemoglobin 11.1 g/dL (12.0-16.0); Immature Granulocytes # (auto) 0.01 K/uL (0.00-0.02); Immature Granulocytes % (auto) 0.1 %; Lymphocytes # (auto) 1.87 K/uL (1.2-3.4); Lymphocytes % (auto) 24.9 %; Mean Corpuscular Hemoglobin 30.9 pg (25-34); Mean Corpuscular Hgb Conc 32.8 g/dL (32-36); Mean Corpuscular Volume 94.2 fL (80-100); Mean Platelet Volume 9.5 fL (7.4-10.4); Neutrophils % (auto) 61.1 %; Platelet Count 248 K/uL (130-400); RDW Coefficient of Variation 13.9 % (11.5-14.5); Red Blood Count 3.59 M/uL (4.2-5.4); White Blood Count 7.52 K/uL (4.8-10.8)
[2021-06-19 06:30] LABS: Calcium 8.7 mg/dl (8.5-10.1); Chol HDL Ratio 2.7 (0-5); Creatinine Clr Calc Pharmacy 47.4 ml/min; Est GFR (African American) 86.8 ml/min; Est GFR (Non-African American) 74.9 ml/min; Potassium 3.6 mmol/L (3.5-5.1)
[2021-06-19 06:33] LABS: Troponin I 0.14 ng/ml (0-0.04)
[2021-06-19] MEDS: ENALAPRIL MALEATE 10 MG TAB PO SCH (08:34)
[2021-06-19] MEDS: PANTOprazole 40 MG TAB PO SCH (08:34)
[2021-06-19] MEDS: PRAVASTATIN SOD 40 MG TAB PO SCH (08:34)
--- NOTE | 2021-06-19 11:54 | XCELERA ---
[id number]
[2021-06-19] MEDS ORDERED: LIDOCAINE 1% LOCAL 20 ML VIAL ONE (12:03)
[2021-06-19] MEDS ORDERED: BUPIVACAINE 0.25% 30 ML VIAL ONE (12:03)
[2021-06-19] MEDS ORDERED: VANCOMYCIN HCL 1000MG/20ML VIAL ONE (12:03)
[2021-06-19] MEDS ORDERED: WATER, STERILE FOR INJ 10 ML VIAL ONE (12:04)
[2021-06-19] MEDS ORDERED: ceFAZolin 330 MG/ML 1 GM VIAL ONE (12:11)
[2021-06-19] MEDS ORDERED: MIDAZOLAM HCL 1 MG/ML 2ML VIAL ONE (12:11)
[2021-06-19] MEDS ORDERED: fentaNYL citrate 100 MCG/2 ML VIAL ONE (12:12)
--- NOTE | 2021-06-19 12:13 | Pre Anesthesia Assessment ---
Date of Service June 19, 2021 Pre Sedation Assessment Vital Signs Temp Pulse Pulse Resp BP BP Pulse Ox 06/19/21 07:47 36.7 C 44 L 20 185/64 H 97 06/19/21 03:07 36.8 C 33 L 18 163/48 H 92 06/18/21 23:34 187/59 H 06/18/21 23:28 36.8 C 38 L 18 199/54 H 96 06/18/21 23:00 48 L 18 156/50 H 93 06/18/21 19:00 50 L 16 170/56 H 95 06/18/21 18:26 37 C 50 L 21 181/59 H 95 06/18/21 18:19 59 L 18 190/58 H 95 06/18/21 16:00 112 H 20 212/76 H 96 06/18/21 14:56 51 L 20 96 06/18/21 14:52 37 C 54 L 20 219/71 H 96 06/18/21 14:07 36.5 C 40 L 18 216/75 H 97 Pulse Ox 06/19/21 07:47 06/19/21 03:07 06/18/21 23:34 06/18/21 23:28 06/18/21 23:00 06/18/21 19:00 06/18/21 18:26 96 06/18/21 18:19 06/18/21 16:00 06/18/21 14:56 06/18/21 14:52 06/18/21 14:07 Cardiovascular + regular rhythm and + bradycardic Respiratory + respiratory effort normal Pre-Sedation Airway Assessment Smoking Status: Never smoker Hx Sleep Apnea: No Hx Difficult Intubation: No Short, Thick Neck: No Thyromental Distance: > or= 3.5 Finger Breadths Oral Cavity: + Dentures Mallampati Class: IV ASA: ASA4 NPO Status Date of Last Intake of Fluids: 06/19/21 Time of Last Intake of Fluids: 08:00 Last Oral Intake of Fluids Comment: sip with meds Date of Last Intake of Solid Food: 06/18/21 Time of Last Intake of Solid Foods: 18:30 Procedure Planning Contraindications for Sedation: none Current Medications Reviewed: Yes Notes The planned sedation has been discussed with the patient. Informed Consent was obtained. I have identified the patient, determined the appropriateness of sedation and have assessed the patient immediately prior to the procedure. All medicine(s) and interventions are by my order.
[2021-06-19] MEDS ORDERED: oxyCODONE HCL IR 5 MG TAB (IMMEDIATE RELEASE) PO PRN (13:23)
--- NOTE | 2021-06-19 13:23 | Electrophysiology Report ---
Date of Service June 19, 2021 Electrophysiology Procedure Electrophysiology Procedure Report Procedure performed: Implantation of dual-chamber permanent pacemaker with septal pacing lead Staff dermatology sales representative: Benji Carpenter MD Indication: The patient is an 85-year-old woman who presented to the hospital with symptomatic bradycardia due to complete AV block. Based on symptomatic nonreversible AV node dysfunction she is of be a good candidate for permanent pacemaker. A dual-chamber device was selected as she is currently in sinus rhythm and wish to maintain AV synchrony. Procedure in detail: The patient was informed of the risks benefits and alternatives to the intended procedure and she wished to proceed. She was taken to the electrophysiology suite in a fasting state. A preoperative antibiotic had been administered. The patient was monitored electrocardiographically throughout today's procedure and conscious sedation was administered per protocol. The left upper pectoral area is prepped and draped in usual sterile fashion. This area was anesthetized using subcutaneous administration of a xylocaine solution. An incision was made at this site and carried down to the prepectoralis fascia using sharp dissection. Electrocautery was also employed for dissection as well as for hemostasis. A device pocket was fashioned tissues above the pectoralis muscle. Subsequent to this maneuver the left axillary vein was accessed using modified Seldinger technique. Sheaths were placed over guidewires at this site and used to facilitate passage of the pacing leads to the respective chambers under fluoroscopic guidance. This included right atrial and right ventricular leads. The right ventricular lead was placed in the interventricular septum in the general vicinity of the left bundle. Adequate sensing and threshold parameters were obtained prior to Active fixation of the leads to the endocardial surface. The proximal portion leads were then sutured the prepectoral fascia using nonabsorbable suture. The device pocket was irrigated with antibiotic solution. The leads were then attached to the device. The device and leads were then placed in the pocket and pocket was closed in 3 layers of absorbable suture. Steri-Strips and sterile dressing were applied. The device was tested noninvasively prior to conclusion the procedure. The patient tolerated procedure well there no immediate complications. Equipment used: New pulse generator: Boiler Tube Reamer [employer]. Model number: [id number] serial number [id number] Right atrial lead: Boiler Tube Reamer [employer]. Model number: [id number] serial number [id number] Right ventricular lead: Boiler Tube Reamer [employer]. Model number: 3830 serial number [id number] Measured data: Right atrial lead: P waves measured 3.1 mV. Pacing threshold was 1.1 V at 0.4 ms with a pacing impedance of 584 ohms Right ventricular lead (in the septal position): R waves measured 4.5 mV. Pacing threshold was 0.7 V at 0.5 ms with a pacing impedance of 802 ohms Impression: Successful implantation of dual-chamber permanent pacemaker with RV lead in the septal position [facility] Electrophysiology codes Pacing Procedure 1: Pacin Insert/Replace Pacer A & V PG Moderate Sedation Codes Moderate Sedation Codes Procedure 1: Sedation/Anesthesia: 13204 Mod Sedation by the same physician;Init15 Min Child Age 5 & Up Procedure 2: Sedation/Anesthesia: 67222 Mod Sedation by the same physician; Ea [id number] Minutes
--- NOTE | 2021-06-19 13:23 | Post Anesthesia Assessment ---
Date of Service June 19, 2021 Post Sedation Assessment Vital Signs Temp Pulse Pulse Resp BP BP Pulse Ox 06/19/21 07:47 36.7 C 44 L 20 185/64 H 97 06/19/21 03:07 36.8 C 33 L 18 163/48 H 92 06/18/21 23:34 187/59 H 06/18/21 23:28 36.8 C 38 L 18 199/54 H 96 06/18/21 23:00 48 L 18 156/50 H 93 06/18/21 19:00 50 L 16 170/56 H 95 06/18/21 18:26 37 C 50 L 21 181/59 H 95 06/18/21 18:19 59 L 18 190/58 H 95 06/18/21 16:00 112 H 20 212/76 H 96 06/18/21 14:56 51 L 20 96 06/18/21 14:52 37 C 54 L 20 219/71 H 96 06/18/21 14:07 36.5 C 40 L 18 216/75 H 97 Pulse Ox 06/19/21 07:47 06/19/21 03:07 06/18/21 23:34 06/18/21 23:28 06/18/21 23:00 06/18/21 19:00 06/18/21 18:26 96 06/18/21 18:19 06/18/21 16:00 06/18/21 14:56 06/18/21 14:52 06/18/21 14:07 Recovery Score Activity: Moves 4 extremities Respiration: Deep Breath/Cough Circulation: +/-20% PreAnes Value Consciousness: Arouseable (by name) Oxygen Saturation: O2 needed for >90% Discharge Sedation Level of Care: Fast Track Phase II Post Sedation Plan On clinical assessment, the patient appears to have tolerated the sedation without complications. Patient is recovering as anticipated. Patient will continue to be monitored by nursing and may be discharged when sedation discharge criteria are met per below protocol. Upon Completions of procedure up to 15 minutes continue every 5 minute vital signs and the P.A.R. score; then discharge to a Phase I or Fast Track to Phase II per the following guidelines: * Discharge Patient to appropriate Phase II area if PAR is 8 or greater or return to pre- procedure baseline. The post - procedure orders will be as directed. * If PAR score is less than 8 or not return to pre-procedure baseline then patient will follow Phase I monitoring till PAR is reached for Phase II. The Phase I may be done in procedure room or may call to secure a Phase I area. * If naloxone or flumazenil are used for reversal, hold in Phase I for continued monitoring from when last reversal dose was given for a minimum of 60 minutes or longer pending the nurse and/or physician discretion of patient condition before discharge to Phase II. Please call the Sedation Physician to re-evaluate and complete post-note for discharge to Phase II area. Do NOT discharge from procedure sedation or Phase 1 until post- sedation evaluation note is complete by procedure /sedation MD Sedation Discharge Instructions to be given to the patient at discharge to home.
--- NOTE | 2021-06-19 16:22 | Hospitalist Progress Note ---
Date of Service June 19, 2021 Assessment & Plan (1) Complete heart block: Plan: Acute onset - ECG without dynamic ST changes - Troponin 0.05 on admission and rising, continue to trend to peak - Evidence of peripheral volume overload--gently diuresed overnight - TSH 6.6 with normal T4 on 50mcg of Synthroid daily - Electrolytes- Mag 1.7- replete closer to 2 decrease QT with bradycardia - Cardiology consulted by EMD- continue consult- appreciate assistance - NPO this morning for PPM insertion today (2) Elevated troponin: Plan: As symptoms have been ongoing for the past week would expect this to be more elevated if ischemic - Patient does carry family history of heart disease with brothers having MIs - Update echo, trend trop, ?type II d/t complete heart block - Continue CHERELLE and statin, should also be on daily ASA (3) Hypertension: Plan: - As above- diurese overnight as perfusion allows - Continue CHERELLE-inhibitor (4) Edema: Plan: - dietary indiscretion leading to fluid retention - likely compounded by her bradycardia at this point - No I/O documentation so unclear if she truly diuresed (5) Hypothyroidism: Plan: on 50MCG synthroid with TSH normally 2 range - Free T4 is normal - Likely not causing her bradycardia (6) Vitamin D deficiency: Plan: - Can resume Vitamin D supplementation (7) Vitamin B12 deficiency: Plan: - Can resume Vit B12 supplementation (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 She remains in ER as bed hold for telemetry. She is currently resting comfortably and offers no complaints. She denies cp, dyspnea, n/v/d, f/c, headache, or gu symptoms. She is for PPM insertion today with Dr. Carpenter. Review of Systems Review of Systems: CONSTITUTIONAL: Denies weight loss/gain, fever and chills, fatigue, malaise, generalized weakness. HEENT: Denies changes in vision and hearing. RESPIRATORY: Denies SOB, cough, wheezing. CV: Denies palpitations, CP, lower extremity edema, orthopnea, PND. GI: Denies abdominal pain, nausea, vomiting and diarrhea. : Denies dysuria and urinary frequency, urgency, hesitancy. MUSCULOSKELETAL: Denies myalgia and joint pain. SKIN: Denies rash and pruritus. NEUROLOGICAL: Denies headache, syncope, focal weakness, numbness, tingling. PSYCHIATRIC: Denies recent changes in mood. Denies anxiety and depression. Physical Exam Physical Exam: GENERAL: 85 yo wd/wn elderly WF, pleasant, cooperative. NAD. LUNGS: Clear to auscultation bilaterally. No W/R/R. CARDIOVASCULAR: S1, S2, regular rhythm but bradycardic. No M/G/R. ABDOMEN: Soft, non-tender and non-distended. BS normal x 4 quad. EXTREMITIES: No edema. Non-tender. Peripheral pulses +2/4. NEUROLOGIC: A&O x3. PSYCHIATRIC: Cooperative. Appropriate mood and affect. SKIN: Warm, dry, intact. No rashes or lesions. Results & Data Results & Data ([facility]) Vital Signs (Past 12 Hours) Vital Signs Temp Pulse Resp BP BP Pulse Ox 06/19/21 15:44 36.5 C 87 18 160/69 H 94 06/19/21 15:15 84 16 147/53 H 92 06/19/21 15:00 82 16 171/63 H 92 06/19/21 14:30 82 16 186/95 H 92 06/19/21 14:15 73 16 170/67 H 92 06/19/21 14:00 77 16 161/70 H 93 06/19/21 13:45 76 16 170/65 H 99 06/19/21 13:30 82 16 159/68 H 92 06/19/21 07:47 36.7 C 44 L 20 185/64 H 97 Laboratory Results 06/19/21 05:56 06/19/21 05:56 PG Care Time/CCT Total # of Minutes Spent Total Time Spent with Patient: Total time spent is greater than 50% in coordination of care (as documented) at patient's floor/unit and/or counseling patient: Coding Level of Care Code 38541 Subseq Hosp Care Lvl 2 Diagnoses Elevated troponin R77.8 Hypertension I10 Hypertension type: essential hypertension Edema R60.9 Hypothyroidism E03.9 Hypothyroidism type: acquired Vitamin D deficiency E55.9 Vitamin B12 deficiency E53.8 Sensory polyneuropathy G60.8 Hyperlipidemia E78.49; E78.4 Hyperlipidemia type: other hyperlipidemia Complete heart block I44.2 (1) Hypertension Hypertension type: essential hypertension Qualified Code(s): I10 - Essential (primary) hypertension (2) Hypothyroidism Hypothyroidism type: acquired Qualified Code(s): E03.9 - Hypothyroidism, unspecified (3) Hyperlipidemia Hyperlipidemia type: other hyperlipidemia Qualified Code(s): E78.49 - Other hyperlipidemia; E78.4 - Other hyperlipidemia
[2021-06-19] MEDS: ceFAZolin 1000MG 1,000 MG/7.5 ML SYR IV SCH (20:25)
[2021-06-20 02:05] LABS: Appearance Urine Clear (Clear); Bacteria Urine Automated Negative (Negative); Bilirubin Urine Negative (Negative); Blood Urine 1+ (Negative); Color Urine Yellow; Epithelial Cell Urine Auto >30 /lpf (0-5); Glucose Urine UA Negative (Negative); Ketones Urine 2+ (Negative); Leukocyte Esterase Urine Negative (Negative); Nitrite Urine Negative (Negative); Protein Urine Negative (Negative); Specific Gravity Urine 1.021 (1.000-1.030); Urobilinogen Urine Negative (Negative)
[2021-06-20] MEDS: ceFAZolin 1000MG 1,000 MG/7.5 ML SYR IV SCH (04:22)
--- NOTE | 2021-06-20 06:17 | Electrocardiogram Report ---
Test Reason : Blood Pressure : / mmHG Vent. Rate : 043 BPM Atrial Rate : 107 BPM P-R Int : 206 ms QRS Dur : 136 ms QT Int : 532 ms P-R-T Axes : 044 026 008 degrees QTc Int : 449 ms Sinus tachycardia with high grade AV block/intermittent AV dissociation and ventricular escape beats Possible Left atrial enlargement Right bundle branch block Nonspecific ST and T wave abnormality Abnormal ECG When compared with ECG of 11-OCT-1996 09:39, High grade AV block is now present Vent. rate has decreased BY 34 BPM Right bundle branch block is now Present Confirmed by Dayday Meza ([id number]) on 06/20/2021 6:17:40 AM Referred By: Confirmed By:Dayday Meza
[2021-06-20] MEDS: LEVOTHYROXINE SODIUM 50 MCG TABLET PO SCH (06:25)
--- NOTE | 2021-06-20 07:03 | Electrocardiogram Report ---
Test Reason : Blood Pressure : / mmHG Vent. Rate : 076 BPM Atrial Rate : 076 BPM P-R Int : 158 ms QRS Dur : 144 ms QT Int : 480 ms P-R-T Axes : 045 -67 093 degrees QTc Int : 540 ms Atrial-sensed ventricular-paced rhythm Abnormal ECG When compared with ECG of 18-JUN-2021 14:29, Ventricular pacing is now present Vent. rate has increased BY 33 BPM Confirmed by Dayday Meza ([id number]) on 06/20/2021 7:03:42 AM Referred By: Ryan Limon Confirmed By:Dayday Meza
--- NOTE | 2021-06-20 08:04 | XRay Report ---
XR chest 2V PA/lateral HISTORY: Left-sided pacemaker placement. EXACT TIME ORDERED Evaluate for pneumothorax and l COMPARISON: Chest 06/18/2021. FINDINGS: The heart remains mildly enlarged. Trace left pleural effusion persists. There is mild cent ral pulmonary vascular congestion without overt edema. No new focal lung consolidations identified. N o pneumothorax. Interval placement of a left-sided dual-chamber pacemaker. The leads appear intact. IMPRESSION: 1. Interval placement of a left-sided dual-chamber pacemaker. No pneumothorax. 2. Cardiomegaly with mild congestive change and a trace left pleural effusion. ACT 112: Negative or not required by law. Electronically signed by: Collin Carvajal M.D. 06/20/2021 8:03 AM
--- NOTE | 2021-06-20 09:01 | Cardiology Progress Note ---
Date of Service June 20, 2021 Assessment & Plan (1) Status post placement of cardiac pacemaker: (2) Hypertension: (3) Elevated troponin: Plan: 1. Postop day #1: The pacemaker is functioning well and leads are in good position on chest x-ray. She has no pneumothorax. The incision looks good. From the standpoint of the pacemaker she could go home today. We will arrange follow-up. 2. Hypertension: Her blood pressure is markedly elevated, at this point with the pacemaker there is no limitation on what drugs can be used (such as beta- blockade or calcium channel blockade) but I have not altered her medical therapy. 3. Elevated troponin: Her troponin has been increasing since presentation including shortly after pacemaker implantation as well as this morning. This could still be due to demand ischemia from the bradycardia and hypertension, the levels are still fairly low and she is quite hypertensive but I still can't exclude ischemia. I would feel better keeping her another night, getting several more troponin measurements to see the trend and control her blood pressure. I will order a troponin for this evening and tomorrow morning. Admission and Anticipated Discharge Date Admission Date: June 18, 2021 Subjective She is feeling well today having no significant incisional discomfort following her pacemaker yesterday. She confirms that she has not had chest discomfort or other anginal symptoms before or since the pacemaker implantation. She is out of bed to the chair with no difficulty today. Physical Exam Physical Exam: The incision is clean and dry with Steri-Strips over the incision. No erythema, swelling or drainage. Dressing changed. Cardiac rhythm is regular with no rub Lungs are clear Results & Data ([facility]) Vital Signs (Past 12 Hours) Vital Signs Temp Pulse Pulse Resp BP BP Pulse Ox 06/20/21 07:53 36.7 C 86 18 176/74 H 96 06/20/21 07:39 90 06/20/21 06:30 36.7 C 88 16 175/83 H 93 06/20/21 04:19 36.5 C 86 16 172/70 H 96 06/19/21 22:54 37.0 C 89 16 177/74 H 92 Laboratory Results Cardiac Enzymes 06/19/21 Range/Units 16:22 Troponin I 0.94 H* (0-0.04) ng/ml Intake and Output 06/19/21 06/20/21 06/20/21 22:59 06:59 14:59 Output Total 75 / 75 Balance -75 / -75 Output: Urine 75 / 75 Other: # Unmeasured Voids 1 4 Weight 61 kg Weight Measurement Method [facility] Diagnostic Findings Postop ECG: Atrial sensed and ventricular pacing with appropriate ventricular paced complexes. Telemetry: Appropriate pacing overnight. Chest x-ray: Good lead position, no pneumothorax Pacemaker evaluation: Excellent measurements. PG Care Time/CCT Total # of Minutes Spent Total Time Spent with Patient: Total time spent is greater than 50% in coordination of care (as documented) at patient's floor/unit and/or counseling patient: Coding Level of Care Code 96472 Subseq Hosp Care Lvl 2 Diagnoses Status post placement of cardiac pacemaker Z95.0 Hypertension I10 Hypertension type: essential hypertension Elevated troponin R77.8 CPT Codes Dual Lead Pacemaker System - 57338 ([id number]) (1) Hypertension Hypertension type: essential hypertension Qualified Code(s): I10 - Essential (primary) hypertension
[2021-06-20] MEDS: PANTOprazole 40 MG TAB PO SCH (09:35)
[2021-06-20] MEDS: ENALAPRIL MALEATE 10 MG TAB PO SCH (09:35)
[2021-06-20] MEDS: PRAVASTATIN SOD 40 MG TAB PO SCH (09:35)
[2021-06-20 11:21] LABS: Basophils # (auto) 0.02 K/uL (0-0.2); Basophils % (auto) 0.2 %; Eosinophils % (auto) 1.2 %; Hematocrit (blood only) 39.5 % (37-47); Hemoglobin 13.1 g/dL (12.0-16.0); Immature Granulocytes # (auto) 0.02 K/uL (0.00-0.02); Immature Granulocytes % (auto) 0.2 %; Lymphocytes # (auto) 1.54 K/uL (1.2-3.4); Lymphocytes % (auto) 17.9 %; Mean Corpuscular Hemoglobin 31.4 pg (25-34); Mean Corpuscular Hgb Conc 33.2 g/dL (32-36); Mean Corpuscular Volume 94.7 fL (80-100); Mean Platelet Volume 9.8 fL (7.4-10.4); Monocytes # (auto) 0.85 K/uL (0.11-0.59); Monocytes % (auto) 9.9 %; Neutrophils # (auto) 6.09 K/uL (1.4-6.5); Neutrophils % (auto) 70.6 %; Platelet Count 232 K/uL (130-400); RDW Standard Deviation 47.9 fL (36.4-46.3); Red Blood Count 4.17 M/uL (4.2-5.4); White Blood Count 8.62 K/uL (4.8-10.8)
[2021-06-20 11:49] LABS: BUN Creatinine Ratio 25.4 (10-20); Calcium 9.1 mg/dl (8.5-10.1); Creatinine Clr Calc Pharmacy 53.7 ml/min; Est GFR (African American) 96.1 ml/min; Est GFR (Non-African American) 82.9 ml/min; Magnesium 1.8 mg/dl (1.7-2.4); Potassium 3.4 mmol/L (3.5-5.1)
[2021-06-20] MEDS ORDERED: LABETALOL HCL IV 5 MG/ML 20ML IV PRN (17:32)
--- NOTE | 2021-06-20 17:32 | Hospitalist Progress Note ---
Date of Service June 20, 2021 Assessment & Plan (1) Complete heart block: Plan: Acute onset. Troponin 0.05 on admission and rising, continue to trend to peak. - PPM inserted on 06/20. - Interrogation and CXR were good. Ready for discharge there. (2) Elevated troponin: Plan: As symptoms have been ongoing for the past week would expect this to be more elevated if ischemic. Patient does carry family history of heart disease with brothers having MIs. - Continue CHERELLE and statin, should also be on daily ASA - On 06/20, troponin is still uptrending, though more slowly. Discussed with cardiology who feels some deeper TWIs seen EKG on admission. - Will trend 2 further troponins tonight and tomorrow. If improving, can likely discharge. Consider outpatient NM perfusion scan vs. inpatient if troponins still uptrending. (3) Hypertension: Plan: Per patient, usual home BP is 120-130/60s. BP here considerably higher with it as high as 180/100. Patient does report some anxiety and stress about being in the hospital. - Continue CHERELLE-inhibitor - Add labetalol PRN (4) Edema: Plan: Dietary indiscretion leading to fluid retention. Likely compounded by her bradycardia at this point. - Given Lasix, but no I/O documentation so unclear if she truly diuresed. - Presently appears euvolemic. (5) Hypothyroidism: Plan: On 50MCG Synthroid with TSH normally 2 range. - Free T4 is normal - No change. 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 No chest pain. Reports no fevers/chills, chest pain, shortness of breath, abdominal pain, nausea, or vomiting. Physical Exam Constitutional: WD/WN, vitals as above Eyes: EOM intact bilaterally; no conjunctival abnormality ENMT: external ear and nose normal, oropharynx normal Neck: trachea midline, no thyromegaly normal visual inspection Respiratory: normal respiratory effort, lungs clear to auscultation no respiratory distress Cardiovascular: RRR, no murmur, no edema Gastrointestinal (Abdomen): Inspection/Auscultation: abdomen normal to inspection; abdomen not distended Musculoskeletal: no cyanosis or clubbing, extremities motor strength 5/5 Skin: no rashes, warm and dry Left chest wall without bruising or other issues. Neurologic: moves all extremities and awake Psychiatric: Orientation: alert, oriented to person and cooperative Results & Data Results & Data ([facility]) Vital Signs (Past 12 Hours) Vital Signs Temp Pulse Pulse Resp BP BP Pulse Ox 06/20/21 16:29 37.4 C 88 18 182/101 H 97 06/20/21 10:52 36.9 C 84 18 180/74 H 96 06/20/21 07:53 36.7 C 86 18 176/74 H 96 06/20/21 07:39 90 06/20/21 06:30 36.7 C 88 16 175/83 H 93 PG Care Time/CCT Total # of Minutes Spent Total Time Spent with Patient: Total time spent is greater than 50% in coordination of care (as documented) at patient's floor/unit and/or counseling patient: Coding Level of Care Code 79136 Subseq Hosp Care Lvl 3 Diagnoses Complete heart block I44.2 Elevated troponin R77.8 Hypertension I10 Hypertension type: essential hypertension Edema R60.9 Hypothyroidism E03.9 Hypothyroidism type: acquired Vitamin D deficiency E55.9 Vitamin B12 deficiency E53.8 Sensory polyneuropathy G60.8 Hyperlipidemia E78.49; E78.4 Hyperlipidemia type: other hyperlipidemia (1) Hypertension Hypertension type: essential hypertension Qualified Code(s): I10 - Essential (primary) hypertension (2) Hypothyroidism Hypothyroidism type: acquired Qualified Code(s): E03.9 - Hypothyroidism, unspecified (3) Hyperlipidemia Hyperlipidemia type: other hyperlipidemia Qualified Code(s): E78.49 - Other hyperlipidemia; E78.4 - Other hyperlipidemia
[2021-06-21] MEDS: LEVOTHYROXINE SODIUM 50 MCG TABLET PO SCH (06:02)
--- NOTE | 2021-06-21 07:41 | Cardiology Progress Note ---
Date of Service June 21, 2021 Assessment & Plan (1) Status post placement of cardiac pacemaker: (2) Hypertension: (3) Elevated troponin: Plan: 1. Postop day #2: The pacemaker is functioning well and leads are in good position on chest x-ray. She has no pneumothorax. The incision looks good. From the standpoint of the pacemaker she could go home today. We will arrange follow-up. 2. Hypertension: Her blood pressure is still elevated although better, I have not altered her medical therapy. 3. Elevated troponin: Her troponin had been increasing since presentation including shortly after pacemaker implantation as well as yesterday morning. It is now trending down, This could still be due to demand ischemia from the bradycardia and hypertension, the levels remained fairly low and she is quite hypertensive. She is asymptomatic and although I still can't exclude ischemia I don't think further evaluation is needed at this time. Admission and Anticipated Discharge Date Admission Date: June 18, 2021 Subjective She is feeling well, she has no chest discomfort and no significant incisional discomfort. Physical Exam Physical Exam: The dressing is clean and dry. Cardiac rhythm is regular with no rub Lungs are clear Results & Data ([facility]) Vital Signs (Past 12 Hours) Vital Signs Temp Pulse Pulse Resp BP BP Pulse Ox 06/21/21 03:21 36.9 C 80 16 155/70 H 93 06/21/21 00:31 79 06/20/21 23:08 36.8 C 80 16 161/71 H 93 06/20/21 19:42 36.8 C 84 16 164/74 H 93 Laboratory Results Cardiac Enzymes 06/20/21 06/20/21 Range/Units 10:36 21:11 Troponin I 0.97 H* 0.72 H* (0-0.04) ng/ml CBC 06/20/21 Range/Units 10:36 WBC 8.62 (4.8-10.8) K/uL RBC 4.17 L (4.2-5.4) M/uL Hgb 13.1 (12.0-16.0) g/dL Hct 39.5 (37-47) % Plt Count 232 (130-400) K/uL Neut # (Auto) 6.09 (1.4-6.5) K/uL Lymph # (Auto) 1.54 (1.2-3.4) K/uL [place] # (Auto) 0.85 H (0.11-0.59) K/uL Eos # (Auto) 0.10 (0-0.5) K/uL Baso # (Auto) 0.02 (0-0.2) K/uL Comprehensive Metabolic Panel 06/20/21 Range/Units 10:36 Sodium 142 (136-145) mmol/L Potassium 3.4 L (3.5-5.1) mmol/L Chloride 105 (98-107) mmol/L Carbon Dioxide 24 (21-32) mmol/L BUN 16 (6-23) mg/dl Creatinine 0.63 (0.6-1.2) mg/dl Glucose 93 (70-99(Fasting)) mg/dl Calcium 9.1 (8.5-10.1) mg/dl Intake and Output 06/20/21 06/21/21 06/21/21 22:59 06:59 14:59 Intake Total 650 / 800 150 / 800 Balance 650 / 800 150 / 800 Intake: Oral 650 / 800 150 / 800 Other: # Unmeasured Voids 1 Weight 61.1 kg Weight Measurement Method Built in [facility] Diagnostic Findings Telemetry: Normal pacemaker function. PG Care Time/CCT Total # of Minutes Spent Total Time Spent with Patient: Total time spent is greater than 50% in coordination of care (as documented) at patient's floor/unit and/or counseling patient: Coding Level of Care Code 75475 Subseq Hosp Care Lvl 2 Diagnoses Status post placement of cardiac pacemaker Z95.0 Hypertension I10 Hypertension type: essential hypertension Elevated troponin R77.8 (1) Hypertension Hypertension type: essential hypertension Qualified Code(s): I10 - Essential (primary) hypertension
[2021-06-21 08:06] LABS: Basophils # (auto) 0.02 K/uL (0-0.2); Basophils % (auto) 0.3 %; Eosinophils # (auto) 0.28 K/uL (0-0.5); Eosinophils % (auto) 3.6 %; Hematocrit (blood only) 37.9 % (37-47); Hemoglobin 12.6 g/dL (12.0-16.0); Immature Granulocytes # (auto) 0.01 K/uL (0.00-0.02); Immature Granulocytes % (auto) 0.1 %; Lymphocytes # (auto) 1.83 K/uL (1.2-3.4); Lymphocytes % (auto) 23.5 %; Mean Corpuscular Hemoglobin 31.2 pg (25-34); Mean Corpuscular Hgb Conc 33.2 g/dL (32-36); Mean Corpuscular Volume 93.8 fL (80-100); Mean Platelet Volume 9.3 fL (7.4-10.4); Monocytes # (auto) 0.77 K/uL (0.11-0.59); Monocytes % (auto) 9.9 %; Neutrophils # (auto) 4.89 K/uL (1.4-6.5); Neutrophils % (auto) 62.6 %; Platelet Count 230 K/uL (130-400); RDW Coefficient of Variation 13.9 % (11.5-14.5); RDW Standard Deviation 47.5 fL (36.4-46.3); Red Blood Count 4.04 M/uL (4.2-5.4)
[2021-06-21] MEDS: PANTOprazole 40 MG TAB PO SCH (09:00)
[2021-06-21] MEDS: PRAVASTATIN SOD 40 MG TAB PO SCH (09:00)
[2021-06-21] MEDS: ENALAPRIL MALEATE 10 MG TAB PO SCH (09:00)
[2021-06-21 10:15] LABS: BUN Creatinine Ratio 24.6 (10-20); Calcium 8.9 mg/dl (8.5-10.1); Creatinine Clr Calc Pharmacy 49.1 ml/min; Est GFR (African American) 93.3 ml/min; Est GFR (Non-African American) 80.5 ml/min; Magnesium 1.8 mg/dl (1.7-2.4); Potassium 3.5 mmol/L (3.5-5.1)
[2021-06-21 10:22] LABS: Troponin I 0.54 ng/ml (0-0.04)
--- NOTE | 2021-06-21 13:37 | Discharge Summary ---
Date of Service June 21, 2021 Admission HPI Per Admitting Provider 85 YOF with past medical history of: HTN, Hypothyroidism, polyneuropathy, lumbar spondylosis, OA. Patient comes in today for complaints of dyspnea and fatigue and leg swelling. This has been ongoing for the past 2 weeks. Started with swelling of her ankles bilaterally and slowly progressing up to her knees, she also has been getting increase in fatigue and dyspnea when performing her physical therapy to the point she needed to sit down and rest. She denies any chest pain or dizziness, she did however have a feeling of off balance yesterday while getting her mail. In the EMD the patient was noted to be hypertensive and bradycardic. She was noted to be in 2nd degree type II AV block. She had routine labs done to include troponin, ECG, and CXR. The patient denies any new medications, but does endorse dietary indiscretion over the last month of allot of ham and dairy. She does not have any pets, but her family that visits every other week has 2 dogs that are inside pets. She denies any ticks or insect bites. She does follow with neurology for her neuropathy and had MRI of the brain, lumbar, thoracic completed May and Jun 29 without acute infarct/masses, or chord involvement. Noted for DJD and anterolisthesis of L4- L5. Patient is bradycardic to the 40s and 50s with evidence of peripheral volume overload and pleural effusions on her CXR. She is hypertensive at this time, which is likely compensatory from her HR. She has no evidence of organ dysfunction or hypoxia at this time. Electrolytes are normal without evidence of acidosis making BRASH syndrome less likely. Lyme is pending on her. TSH is 6.67 with normal T4 of 1.30, BNP is elevated, and she is without neurological symptoms. Troponin I 0.[address] segment changes, no evidence of infectious etiology. Will admit patient to PCU with diuresing to decrease her volume status, will avoid aggressive BP lowering at this time as this is likely compensatory for her low HR. Patient COVID test is: NEGATIVE at this time Principal Diagnosis Heart block requiring a pacemaker Discharge Exam Constitutional WD/WN, vitals as above Eyes EOM intact bilaterally; no conjunctival abnormality ENMT external ear and nose normal, oropharynx normal Neck trachea midline, no thyromegaly normal visual inspection Respiratory normal respiratory effort, lungs clear to auscultation no respiratory distress Cardiovascular RRR, no murmur, no edema Chest (Breasts) Chest: + pacemaker (Site looks good. No bleeding or erythema.) Gastrointestinal (Abdomen) Inspection/Auscultation: abdomen normal to inspection; abdomen not distended Musculoskeletal no cyanosis or clubbing, extremities motor strength 5/5 Skin no rashes, warm and dry Neurologic moves all extremities and awake Psychiatric Orientation: alert, oriented to person and cooperative Discharge Data Allergies Allergy/AdvReac Type Severity Reaction Status Date / Time adhesive Allergy Unknown Unknown Verified 06/18/21 15:09 Consultations 06/18/21 15:33 ED Decision to Admit Stat 06/18/21 18:15 Consult Cardiology Routine Procedures Performed Operation Date: 06/19/21 11:30 Actual Procedures p Pacer with A/V Leads (Dual) - Benji Carpenter MD Ordered Studies 06/19/21 06:59 CL Cath Imgs for PACS use only Routine Hospital Course (1) Complete heart block: Acute onset. Troponin 0.05 on admission and rising, continue to trend to peak. - PPM inserted on 06/20. - Interrogation and CXR were good. Ready for discharge there. F/u with Dr. Carpenter in 1 week. (2) Elevated troponin: As symptoms have been ongoing for the past week would expect this to be more elevated if ischemic. Patient does carry family history of heart disease with brothers having MIs. - Continue CHERELLE and statin - On 06/20, troponin is still uptrending. Discussed with cardiology who feels some deeper TWIs seen EKG on admission. Trended two more which were going down. - Discussed with cardiology on 06/21. Given the relatively low troponin (max of 0.97), that PCI does not carry mortality benefit, and that patient was asymptomatic from any anginal perspective, do not feel there is benefit to in patient stress test or left heart cath. Will discharge home today. Could consider ASA 81 mg daily, but in absence of known CAD, also unclear if this will provide benefit. F/u with Dr. Carpenter. (3) Hypertension: Per patient, usual home BP is 120-130/60s. BP here considerably higher with it as high as 180/100. Patient does report some anxiety and stress about being in the hospital. - Continue CHERELLE-inhibitor - F/u as outpatient. Will get BP check at Dr. Carpenter's office visit next week. (4) Edema: Dietary indiscretion leading to fluid retention. Likely compounded by her bradycardia at this point. - Given Lasix, but no I/O documentation so unclear if she truly diuresed. - Presently appears euvolemic. (5) Hypothyroidism: On 50MCG Synthroid with TSH normally 2 range. - Free T4 is normal - No change. (6) Vitamin D deficiency: - Can resume Vitamin D supplementation (7) Vitamin B12 deficiency: - Can resume Vit B12 supplementation (8) Sensory polyneuropathy: Follows with neurology- MRI as per HPI and chart review (9) Hyperlipidemia: - Continue pravastatin DVT ppx - Early ambulation; avoid heparin given PPM Total Time Total Time Spent Total Time Spent (In Minutes): 35 Discharge Plan Discharge Items Patient Disposition: Home - Self-Care Reason For Visit: 2ND DEGREE II AV BLOCK Discharge Diagnosis: Heart block - Slow heart rate Activity: Resume your previous activity Non-emergency contact: Primary Care Provider and Humanities Professor Call non-emergency contact if: your symptoms worsen Follow-up/Referrals: Ryan Limon MD [Primary Care Provider] - (Dr. Limon is unavailable. Follow up appointment scheduled with Leda Jung PA-C.) Leda Jung PA-C [Physician [employer] Grade Social Studies Teacher] - 06/29/21 11:00 am (Dr. Limon is unavailable. Please follow up with Leda Jung PA-C on Tuesday06/29/21 at 11:00 am. Please arrive to the office at 10:45 am for your appointment. If you are unable to keep this appointment, please call the office to reschedule at [phone].) Benji Carpenter MD [Physician] - (Please arrange follow-up with Dr. Carpenter next week.) Diet: Regular Addtl Attending Provider Instructions: Ms. Foley, You were admitted to the hospital for symptoms related to a slow heart rate which required a pacemaker to be inserted. You will see Dr. Carpenter next week for routine follow-up. We also noted your "troponin" went up slightly which can be a sign of heart disease. However, you did not have any symptoms. In discussion with the cardiology team, it was felt that there would be little to no benefit doing a catheterization or further testing. However, it would be worth following up with Dr. Carpenter on this issue as well. ACTIVITY RECOMMENDATIONS: * Do not raise affected arm over head for 2 weeks. SPECIAL CARE INSTRUCTIONS: * If bleeding occurs, apply direct pressure to area for 5 minutes. * Call your doctor if you have severe pain, fever, drainage or bleeding at site. * Keep dressing on and dry for 48 hours then remove. * Keep any scheduled doctor's appointment. * Implant Card - hand held device with website information given. SKIN IRRITATION: * You may experience some redness and/or swelling in the area where radiation was administered. If any skin irritation occurs, please contact your family physician. FOLLOW UP VISIT: Keep any scheduled doctor appointments. Pending Studies at Discharge: No Stand-Alone Forms: My [facility] [employer], Smoking Cessation Medications and DC Order Prescriptions: Continued ramipril 2.5 mg capsule 2.5 mg PO DAILY Qty: 90 RF: 3 levothyroxine 50 mcg tablet 50 mcg PO DAILY Qty: 90 RF: 3 omeprazole 20 mg capsule,delayed release(DR/EC) 20 mg PO DAILY Qty: 90 RF: 3 pravastatin 40 mg tablet 40 mg PO DAILY Qty: 90 RF: 3 cyanocobalamin (vitamin B-12) 2,500 mcg tablet 2,500 mcg PO DAILY RF: 0 calcium carbonate-vitamin D3 600 mg(1,500mg) -200 unit tablet 1 tab PO DAILY RF: 0 omega-3 fatty acids [Fish Oil Concentrate] 1,000 mg capsule 1,000 mg PO DAILY RF: 0 glucosamine sulfate [Glucosamine] 500 mg tablet 500 mg PO DAILY RF: 0 ibuprofen 200 mg tablet 200 mg PO Q6H RF: 0 cholecalciferol (vitamin D3) 2,000 unit tablet 2,000 units PO DAILY RF: 0 Discharge Orders: Discharge Order (Routine); Ordered 06/21/21 Ordered By: Fernando Black Admission Data Admit Date/Time: 06/18/21 16:23 Attending Provider: Fernando Black Admit Provider: Edmond Bennett Primary Care Provider: Ryan Limon Other Providers: Dayday Meza ; Fernando Black Other Interventions: Discharge Summary Assessment (RN) Last Done: 06/21/21 12:10 Coding Level of Care Code D/C DAY MANAGEMENT >30 MINS Diagnoses Complete heart block I44.2 Elevated troponin R77.8 Hypertension I10 Hypertension type: essential hypertension Edema R60.9 Hypothyroidism E03.9 Hypothyroidism type: acquired Vitamin D deficiency E55.9 Vitamin B12 deficiency E53.8 Sensory polyneuropathy G60.8 Hyperlipidemia E78.49; E78.4 Hyperlipidemia type: other hyperlipidemia
== END 2021-06-21 14:25 | disposition home or self-care (01) | DRG 242 ==
LOC: ED 13:50 → EDINP 16:23 → SUATTDRO 16:23 → 2S 18:19